=== PATIENT | male | born 1950 | race Caucasian/White ===

== ENCOUNTER 2016-06-13 11:33 | Emergency (ER) | payer OTHER ==
[~2016-06-13 11:33] MED LIST: ASPI81TA44 PO; ATOR10TA60 PO; IBUP800T PO; METF10002 PO
[2016-06-13 12:10] LABS: BASO # 0.1 x10^3/uL (0.0-0.2); BASO % 1 % (0-3); EOS # 0.2 x10^3/uL (0.0-0.7); EOS % 2 % (0-3); HEMATOCRIT 44.3 % (39.0-53.0); LYMPH # 2.2 x10^3/uL (1.0-4.8); LYMPH % 18 % (24-48); MEAN CORPUSCULAR HEMOGLOBIN 30 pg (25-35); MEAN CORPUSCULAR HGB CONC 34 g/dL (31-37); MEAN CORPUSCULAR VOLUME 88 fL (79-100); MONO % 8 % (0-9); NEUT # 8.6 x10^3uL (1.8-7.7); NEUT % 71 % (31-73); PLATELET COUNT 205 x10^3/uL (140-400); RED BLOOD COUNT 5.01 x10^6/uL (4.30-5.70)
[2016-06-13] MEDS ORDERED: FENTANYL PF 100 MCG/2 ML VIAL. IV ONE (12:15)
[2016-06-13] MEDS ORDERED: ONDANSETRON PF 4 MG/2 ML VIAL. IV ONE (12:20)
[2016-06-13 12:22] LABS: CALCIUM 8.8 mg/dL (8.5-10.1); CREATININE 1.4 mg/dL (0.7-1.3); POTASSIUM 3.7 mmol/L (3.5-5.1)
--- NOTE | 2016-06-13 12:22 | RAD ---
CT of the abdomen and pelvis without contrast, 06/13/2016: History: Right flank pain Noncontrast scans were obtained through the urinary tract utilizing the renal stone protocol. This is a limited study for evaluation of the possibility of urinary tract calculi. There is moderate perinephric edema on the right. The right renal pelvis and proximal right ureter are mildly dilated. There is a 9 x 5 mm obstructing calculus in the proximal right ureter at the L2-3 level. The distal right ureter is unremarkable. There is a 10 mm nonobstructing calculus in the lower pole of the left kidney. The left renal collecting system and left ureter are unremarkable. The partially filled urinary bladder shows no abnormality. The prostate gland is mildly enlarged measuring 5.5 cm in width. It contains calcifications. The unopacified liver is unremarkable. No gallbladder abnormality is seen. There is fatty infiltration of the pancreas. The spleen is of normal size. There is mild aortic calcific plaquing without evidence of aneurysm. No abdominal or pelvic adenopathy is seen. Several small sigmoid diverticula are noted. No paracolonic inflammation is evident. The bowel loops are not dilated. The appendix is visualized and shows no abnormality. No free fluid or free air is evident in the abdomen or pelvis. Moderate degenerative changes are present in the lower lumbar spine. There is a chronic appearing mild spondylolisthesis at L5-S1 with partial bony fusion of the disc space. IMPRESSION: 1. 9 x 5 mm obstructing calculus in the proximal right ureter with moderate perinephric edema. 2. Single nonobstructing left intrarenal calculus. 3. Mild prostatic enlargement. PQRS Compliance Statement: One or more of the following individualized dose reduction techniques were utilized for this examination: 1. Automated exposure control 2. Adjustment of the mA and/or kV according to patient size 3. Use of iterative reconstruction technique
--- NOTE | 2016-06-13 12:27 | ED.ADGEN ---
Past History Past Medical History: Diabetes, Hypertension, Other Past Surgical History: Other Alcohol Use: None Drug Use: None Adult General HPI HPI Patient is a 66-year-old male presents emergency department complaining of right flank pain that began suddenly just prior to arrival. He has had no associated nausea or vomiting. He has had no fever or chills. He denies any history of kidney or renal issues in the past. He has had no prehospital intervention. Review of Systems Review of Systems Constitutional: Denies fever or chills [] Eyes: Denies change in visual acuity, redness, or eye pain [] HENT: Denies nasal congestion or sore throat [] Respiratory: Denies cough or shortness of breath [] Cardiovascular: No additional information not addressed in HPI [] GI: Denies abdominal pain, nausea, vomiting, bloody stools or diarrhea [] : Denies dysuria or hematuria [] Musculoskeletal: Denies back pain or joint pain [] Integument: Denies rash or skin lesions [] Neurologic: Denies headache, focal weakness or sensory changes [] Endocrine: Denies polyuria or polydipsia [] Current Medications Current Medications Current Medications Medications (Trade) Dose Ordered Sig/Juwan Start Time Stop Time Status Last Admin Dose Admin Fentanyl Citrate (Fentanyl 2ml Vial) 75 mcg 1X ONCE 06/13/16 12:15 06/13/16 12:16 DC 06/13/16 12:16 75 MCG Hydromorphone HCl (Dilaudid) 1 mg 1X ONCE 06/13/16 13:15 06/13/16 13:16 DC 06/13/16 13:05 1 MG Ketorolac Tromethamine (Toradol) 15 mg 1X ONCE 06/13/16 13:15 06/13/16 13:16 DC Ondansetron HCl (Zofran) 4 mg 1X ONCE 06/13/16 12:20 06/13/16 12:21 DC 06/13/16 12:16 4 MG Allergies Allergies Allergies Coded Allergies Type Severity Reaction Last Updated Verified No Known Drug Allergies 06/13/16 No Physical Exam Physical Exam Constitutional: Well developed, well nourished, no acute distress, non-toxic appearance. [] HENT: Normocephalic, atraumatic, bilateral external ears normal, oropharynx moist, no oral exudates, nose normal. [] Eyes: PERRLA, EOMI, conjunctiva normal, no discharge. [] Neck: Normal range of motion, no tenderness, supple, no stridor. [] Cardiovascular:Heart rate regular rhythm, no murmur [] Lungs & Thorax: Bilateral breath sounds clear to auscultation [] Abdomen: Bowel sounds normal, soft, no tenderness, no masses, no pulsatile masses. [] Skin: Warm, dry, no erythema, no rash. [] Back: No tenderness, right CVA tenderness. [] Extremities: No tenderness, no cyanosis, no clubbing, ROM intact, no edema. [] Neurologic: Alert and oriented X 3, normal motor function, normal sensory function, no focal deficits noted. [] Psychologic: Affect normal, judgement normal, mood normal. [] Current Patient Data Vital Signs Vital Signs Date Time Temp Pulse Resp B/P Pulse Ox O2 Delivery O2 Flow Rate FiO2 06/13/16 14:06 97.3 70 16 163/74 98 Room Air Lab Results Laboratory Tests Test 06/13/16 11:50 White Blood Count 12.0x10^3/uL (4.0-11.0) H Red Blood Count 5.01x10^6/uL (4.30-5.70) Hemoglobin 15.0g/dL (13.0-17.5) Hematocrit 44.3% (39.0-53.0) Mean Corpuscular Volume 88fL (79-100) Mean Corpuscular Hemoglobin 30pg (25-35) Mean Corpuscular Hemoglobin Concent 34g/dL (31-37) Red Cell Distribution Width 13.0% (11.5-14.5) Platelet Count 205x10^3/uL (140-400) Neutrophils (%) (Auto) 71% (31-73) Lymphocytes (%) (Auto) 18% (24-48) L Monocytes (%) (Auto) 8% (0-9) Eosinophils (%) (Auto) 2% (0-3) Basophils (%) (Auto) 1% (0-3) Neutrophils # (Auto) 8.6x10^3uL (1.8-7.7) H Lymphocytes # (Auto) 2.2x10^3/uL (1.0-4.8) Monocytes # (Auto) 1.0x10^3/uL (0.0-1.1) Eosinophils # (Auto) 0.2x10^3/uL (0.0-0.7) Basophils # (Auto) 0.1x10^3/uL (0.0-0.2) Sodium Level 143mmol/L (136-145) Potassium Level 3.7mmol/L (3.5-5.1) Chloride Level 108mmol/L (98-107) H Carbon Dioxide Level 25mmol/L (21-32) Anion Gap 10 (6-14) Blood Urea Nitrogen 19mg/dL (8-26) Creatinine 1.4mg/dL (0.7-1.3) H Estimated GFR (Cockcroft-Gault) 51.0 Glucose Level 140mg/dL (70-99) H Calcium Level 8.8mg/dL (8.5-10.1) Aspartate Amino Transferase (AST) 19U/L (15-37) Alanine Aminotransferase (ALT) 33U/L (16-63) Alkaline Phosphatase 89U/L (46-116) Lipase 115U/L (73-393) EKG EKG [] Radiology/Procedures Radiology/Procedures CT of the abdomen and pelvis without contrast, 06/13/2016: History: Right flank pain Noncontrast scans were obtained through the urinary tract utilizing the renal stone protocol. This is a limited study for evaluation of the possibility of urinary tract calculi. There is moderate perinephric edema on the right. The right renal pelvis and proximal right ureter are mildly dilated. There is a 9 x 5 mm obstructing calculus in the proximal right ureter at the L2-3 level. The distal right ureter is unremarkable. There is a 10 mm nonobstructing calculus in the lower pole of the left kidney. The left renal collecting system and left ureter are unremarkable. The partially filled urinary bladder shows no abnormality. The prostate gland is mildly enlarged measuring 5.5 cm in width. It contains calcifications. The unopacified liver is unremarkable. No gallbladder abnormality is seen. There is fatty infiltration of the pancreas. The spleen is of normal size. There is mild aortic calcific plaquing without evidence of aneurysm. No abdominal or pelvic adenopathy is seen. Several small sigmoid diverticula are noted. No paracolonic inflammation is evident. The bowel loops are not dilated. The appendix is visualized and shows no abnormality. No free fluid or free air is evident in the abdomen or pelvis. Moderate degenerative changes are present in the lower lumbar spine. There is a chronic appearing mild spondylolisthesis at L5-S1 with partial bony fusion of the disc space. IMPRESSION: 1. 9 x 5 mm obstructing calculus in the proximal right ureter with moderate perinephric edema. 2. Single nonobstructing left intrarenal calculus. 3. Mild prostatic enlargement. PQRS Compliance Statement: One or more of the following individualized dose reduction techniques were utilized for this examination: 1. Automated exposure control 2. Adjustment of the mA and/or kV according to patient size 3. Use of iterative reconstruction technique[] Course & Med Decision Making Course & Med Decision Making Pertinent Labs and Imaging studies reviewed. (See chart for details) [] Final Impression Final Impression Kidney stone [] Problems: Dragon Disclaimer Dragon Disclaimer This electronic medical record was generated, in whole or in part, using a voice recognition dictation system. PAUL CARRILLO MD Jun 13, 2016 12:27
[2016-06-13] MEDS ORDERED: HYDROMORPHONE PF 1 MG/ML DISP.SYRIN. IV ONE (13:15)
[2016-06-13] MEDS ORDERED: KETOROLAC 15 MG/ML VIAL. IV ONE (13:15)
[2016-06-13 14:50] VITALS: BP 162/92
== END 2016-06-13 15:05 | disposition short-term general hospital (02) ==
LOC: ER 11:33
DX: N20.0 Calculus of kidney (principal); E11.9 Type 2 diabetes mellitus without complications; I10 Essential (primary) hypertension
CPT/HCPCS: 36415; 74176; 80048; 83690; 84075; 84450; 84460; 85027; 96374; 96375; 99285; J1170; J2405; J3010

== ENCOUNTER 2016-07-16 20:33 | Emergency (ER) | payer OTHER ==
[~2016-07-16] VITALS: Ht 327.7 cm; Wt 121.1 kg
[~2016-07-16 20:33] MED LIST changes: -IBUP800T PO; +IBUP800T19 PO
[2016-07-16] MEDS ORDERED: HYDROmorphone PF 1 MG/ML DISP.SYRIN IV ONE ×2 (21:15→23:00)
[2016-07-16] MEDS ORDERED: ONDANSETRON PF 4 MG/2 ML VIAL. IV ONE ×2 (21:15→23:30)
[2016-07-16] MEDS ORDERED: KETOROLAC 15 MG/ML VIAL. IV ONE (21:15)
[2016-07-16] MEDS ORDERED: IV NORMAL SALINE 1,000ML 1,000 ML IV ONE (21:15)
--- NOTE | 2016-07-16 21:22 | RAD ---
Examination: CT of the abdomen pelvis without contrast. HISTORY History of severe right flank pain COMPARISON 06/13/2016. TECHNIQUE Axial CT images of the abdomen pelvis were performed without contrast. Coronal sagittal reformats were performed. Exposure: One or more of the following dose reduction technique were utilized for this examination: 1. Automated exposure control. 2.Adjustment of MA and /or KV according to patient size. 3. Use of iterative reconstruction technique. Findings; The visualized bibasilar lungs grossly appears unremarkable. No evidence of free air identified in the abdomen. The evaluation of the solid organs is limited lack of IV contrast. The evaluation of the bowel is limited lack of oral contrast. The visualized liver, spleen, adrenals grossly appears unremarkable. The gallbladder is mildly distended. The stomach is mildly distended. The visualized pancreas grossly appears unremarkable. The small bowel is nondilated. Feces and gas noted throughout the colon. Few sigmoid colon diverticulosis identified. Moderate right-sided hydronephrosis again identified. There is a 8.5 millimeter calculus identified in the proximal right ureter similar to prior exam. There is moderate inflammatory fat stranding identified about the right kidney. There is moderate inflammatory fat stranding identified along the right ureter. Urinary bladder is minimally distended. There is minimal stranding identified about the urinary bladder. Intrarenal collecting system calculus identified in the left kidney in the inferior pole measuring 8.5 millimeters again identified. Moderate degenerative changes identified at L4-L5, L5-S1 vertebral level. Spondylolysis identified at L5 vertebral level with mild anterior listhesis of L5 on S1. IMPRESSION - Moderate right-sided hydronephrosis is again identified with a 8.5 millimeter calculus in the proximal right ureter grossly similar to prior exam. There is moderate inflammatory fat stranding identified about the right kidney and along the right ureter could be due to back pressure or due to pyelonephritis. Correlate with lab values. - 8.5 millimeter intrarenal collecting system calculus identified in the left kidney grossly similar to prior exam. - Mild stranding identified about the urinary bladder with minimal distention the urinary bladder, probably nondistention. Correlate for cystitis. Electronically signed by: Isidoro Ghotra (July 16, 2016 21:20:49)
[2016-07-16 21:29] LABS: BASO # 0.1 x10^3/uL (0.0-0.2); BASO % 1 % (0-3); EOS # 0.2 x10^3/uL (0.0-0.7); EOS % 2 % (0-3); HEMATOCRIT 43.2 % (39.0-53.0); HEMOGLOBIN 14.7 g/dL (13.0-17.5); LYMPH # 2.1 x10^3/uL (1.0-4.8); LYMPH % 21 % (24-48); MEAN CORPUSCULAR HEMOGLOBIN 30 pg (25-35); MEAN CORPUSCULAR HGB CONC 34 g/dL (31-37); MEAN CORPUSCULAR VOLUME 88 fL (79-100); MONO % 10 % (0-9); NEUT # 6.6 x10^3uL (1.8-7.7); NEUT % 66 % (31-73); PLATELET COUNT 187 x10^3/uL (140-400); RED CELL DISTRIBUTION WIDTH 13.2 % (11.5-14.5)
[2016-07-16 21:46] LABS: ALBUMIN 3.8 g/dL (3.4-5.0); ALBUMIN/GLOBULIN RATIO 1.3 (1.0-1.7); CALCIUM 8.7 mg/dL (8.5-10.1); CREATININE 1.7 mg/dL (0.7-1.3); GFR 40.8; POTASSIUM 3.9 mmol/L (3.5-5.1); TOTAL BILIRUBIN 0.4 mg/dL (0.2-1.0); TOTAL PROTEIN 6.7 g/dL (6.4-8.2)
[2016-07-16 21:48] LABS: BACTERIA,URINE 0 /HPF (0-FEW); BILIRUBIN,URINE NEG (NEG); CLARITY,URINE CLEAR; COLOR,URINE YELLOW; GLUCOSE,URINE NEG (NEG); NITRITE,URINE NEG (NEG); RBC,URINE 0 /HPF (0-2); SQUAMOUS EPITHELIAL CELL,UR OCC /LPF; UROBILINOGEN,URINE 0.2 mg/dL (0.2 mg/dL); WBC,URINE OCC /HPF (0-4)
[2016-07-16 21:55] VITALS: BP 144/70
--- NOTE | 2016-07-16 22:46 | PHYS DOC ---
Past History Past Medical History: Diabetes, Hypertension, Kidney Stones Past Surgical History: Other Alcohol Use: None Drug Use: None Adult General Chief Complaint Chief Complaint: FLANK PAIN HPI HPI Patient is a 66-year-old gentleman who presents here today complaining of right flank pain. Patient reports she was diagnosed with a kidney stone in his proximal ureter that was approximately 8-9 mm in size. Patient reports that he was evaluated by Dr. Del Angel and had lithotripsy done as well as a stent without any successful resolution to his stone. Patient reports that Dr. Del Angel informed him that the stented pushed the stone back into the kidney and he told that it may or may not come flying out. He advised that if he starts having pain that is returning that he should return to the ER to assist with the pain and discomfort. Patient reports earlier today he started feeling the same type of pain that he had. He reports the pain is in his right flank radiating to his right abdominal area. Patient has any fevers shakes chills nausea vomiting or diarrhea at this time. Patient presents today requesting 'that we go in there and remove it permanently. " Patient's physical exam is remarkable for tenderness to palpation to his right flank and right abdominal area. Patient does not appear to be in any severe distress at this time other than the discomfort that he is having. Patient's abdomen is soft nondistended no rebound or guarding. Normal active bowel sounds. Patient does not present with any signs or symptoms of be concerning for an acute surgical abdomen. Patient's ER workup was significant for a CT scan that revealed moderate right- sided hydronephrosis with an 8.5 mm Was in the right proximal ureter is grossly similar to the prior exam. There is moderate inflammatory fat stranding identified around the right kidney and along the right ureter which could be due to back pressure or due to pyelonephritis. Patient received 2 rounds of Dilaudid IV in the ER without any significant resolution in his discomfort. Patient's pain keeps recurring. Patient was given IV fluids in the ER. I discussed with the patient the CT reports and his options. Patient is currently requesting that we assist him with admission to the hospital in order to have the stone removed once and for all. Plan #1 intractable abdominal pain secondary to renal colic. Patient received several rounds of pain medicines here without any significant resolution in his discomfort. Patient is to be transferred to [facility] for admission for further management of the of his discomfort and for consultation with Dr. Del Angel to assist with definitive care of the stone. Patient is otherwise clinically and hemodynamically stable. There is no evidence of pilohydronephrosis. Case was discussed with Dr. rivera she is in agreement with the plan to transfer to [facility] for admission. Review of Systems Review of Systems Constitutional: Denies fever or chills [] Eyes: Denies change in visual acuity, redness, or eye pain [] HENT: Denies nasal congestion or sore throat [] Respiratory: Denies cough or shortness of breath [] Cardiovascular: No additional information not addressed in HPI [] GI: Denies abdominal pain, nausea, vomiting, bloody stools or diarrhea [] : Denies dysuria or hematuria [] Musculoskeletal: Denies back pain or joint pain [] Integument: Denies rash or skin lesions [] Neurologic: Denies headache, focal weakness or sensory changes [] Endocrine: Denies polyuria or polydipsia [] Current Medications Current Medications Current Medications Medications (Trade) Dose Ordered Sig/Juwan Start Time Stop Time Status Last Admin Dose Admin Hydromorphone HCl (Dilaudid) 1 mg 1X ONCE 07/16/16 23:00 07/16/16 23:01 07/16/16 22:37 1 MG Ketorolac Tromethamine (Toradol) 15 mg 1X ONCE 07/16/16 21:15 07/16/16 21:16 DC 07/16/16 21:24 15 MG Ondansetron HCl (Zofran) 4 mg 1X ONCE 07/16/16 21:15 07/16/16 21:16 DC 07/16/16 21:20 4 MG Sodium Chloride 1,000 ml @ 1,000 mls/hr 1X ONCE 07/16/16 21:15 07/16/16 22:14 DC 07/16/16 21:16 1,000 MLS/HR Allergies Allergies Allergies Coded Allergies Type Severity Reaction Last Updated Verified No Known Drug Allergies 06/13/16 No Physical Exam Physical Exam Constitutional: Well developed, well nourished, no acute distress, non-toxic appearance. [] HENT: Normocephalic, atraumatic, bilateral external ears normal, oropharynx moist, no oral exudates, nose normal. [] Eyes: PERRLA, EOMI, conjunctiva normal, no discharge. [] Neck: Normal range of motion, no tenderness, supple, no stridor. [] Cardiovascular:Heart rate regular rhythm, no murmur [] Lungs & Thorax: Bilateral breath sounds clear to auscultation [] Abdomen: Bowel sounds normal, soft, no tenderness, no masses, no pulsatile masses. [] Skin: Warm, dry, no erythema, no rash. [] Back: No tenderness, no CVA tenderness. [] Extremities: No tenderness, no cyanosis, no clubbing, ROM intact, no edema. [] Neurologic: Alert and oriented X 3, normal motor function, normal sensory function, no focal deficits noted. [] Psychologic: Affect normal, judgement normal, mood normal. [] Current Patient Data Vital Signs Vital Signs Date Time Temp Pulse Resp B/P (MAP) Pulse Ox O2 Delivery O2 Flow Rate FiO2 07/16/16 21:55 68 18 144/70 (94) 95 Room Air 07/16/16 20:40 99.1 Lab Results Laboratory Tests Test 07/16/16 21:10 White Blood Count 10.0 x10^3/uL (4.0-11.0) Red Blood Count 4.90 x10^6/uL (4.30-5.70) Hemoglobin 14.7 g/dL (13.0-17.5) Hematocrit 43.2 % (39.0-53.0) Mean Corpuscular Volume 88 fL (79-100) Mean Corpuscular Hemoglobin 30 pg (25-35) Mean Corpuscular Hemoglobin Concent 34 g/dL (31-37) Red Cell Distribution Width 13.2 % (11.5-14.5) Platelet Count 187 x10^3/uL (140-400) Neutrophils (%) (Auto) 66 % (31-73) Lymphocytes (%) (Auto) 21 % (24-48) L Monocytes (%) (Auto) 10 % (0-9) H Eosinophils (%) (Auto) 2 % (0-3) Basophils (%) (Auto) 1 % (0-3) Neutrophils # (Auto) 6.6 x10^3uL (1.8-7.7) Lymphocytes # (Auto) 2.1 x10^3/uL (1.0-4.8) Monocytes # (Auto) 1.0 x10^3/uL (0.0-1.1) Eosinophils # (Auto) 0.2 x10^3/uL (0.0-0.7) Basophils # (Auto) 0.1 x10^3/uL (0.0-0.2) Urine Collection Type Unknown Urine Color Yellow Urine Clarity Clear Urine pH 6.0 Urine Specific Supai 1.015 Urine Protein Neg (NEG-TRACE) Urine Glucose (UA) Neg mg/dL (NEG) Urine Ketones (Stick) Neg mg/dL (NEG) Urine Blood Neg (NEG) Urine Nitrite Neg (NEG) Urine Bilirubin Neg (NEG) Urine Urobilinogen Dipstick 0.2 mg/dL (0.2 mg/dL) Urine Leukocyte Esterase Neg (NEG) Urine RBC 0 /HPF (0-2) Urine WBC Occ /HPF (0-4) Urine Squamous Epithelial Cells Occ /LPF Urine Bacteria 0 /HPF (0-FEW) Sodium Level 141 mmol/L (136-145) Potassium Level 3.9 mmol/L (3.5-5.1) Chloride Level 106 mmol/L (98-107) Carbon Dioxide Level 24 mmol/L (21-32) Anion Gap 11 (6-14) Blood Urea Nitrogen 24 mg/dL (8-26) Creatinine 1.7 mg/dL (0.7-1.3) H Estimated GFR (Cockcroft-Gault) 40.8 BUN/Creatinine Ratio 14 (6-20) Glucose Level 150 mg/dL (70-99) H Calcium Level 8.7 mg/dL (8.5-10.1) Total Bilirubin 0.4 mg/dL (0.2-1.0) Aspartate Amino Transferase (AST) 17 U/L (15-37) Alanine Aminotransferase (ALT) 30 U/L (16-63) Alkaline Phosphatase 84 U/L (46-116) Total Protein 6.7 g/dL (6.4-8.2) Albumin 3.8 g/dL (3.4-5.0) Albumin/Globulin Ratio 1.3 (1.0-1.7) EKG EKG [] Radiology/Procedures Radiology/Procedures [] Course & Med Decision Making Course & Med Decision Making Pertinent Labs and Imaging studies reviewed. (See chart for details) [] Dragon Disclaimer Dragon Disclaimer This chart was dictated in whole or in part using Voice Recognition software in a busy, high-work load, and often noisy Emergency Department environment. It may contain unintended and wholly unrecognized errors or omissions. Departure Departure: Impression: Primary Impression: Kidney stone Additional Impressions: Intractable abdominal pain Renal colic on right side Elevated serum creatinine Acute renal injury Disposition: 05 XFER OTHER (to [facility] for admission as inpatient) Condition: IMPROVED Referrals: ANNABELLE CARRASCO MD (PCP) Problem Qualifiers FABY TANG MD July 16, 2016 22:46
== END 2016-07-16 23:13 | disposition short-term general hospital (02) ==
LOC: ER 20:33
DX: N20.0 Calculus of kidney (principal); N23 Unspecified renal colic; N17.9 Acute kidney failure, unspecified; R79.89 Other specified abnormal findings of blood chemistry; E11.9 Type 2 diabetes mellitus without complications; I10 Essential (primary) hypertension
CPT/HCPCS: 36415; 74176; 80053; 81001; 85027; 96361; 96374; 96375; 96376; 99285; J1170; J1885; J2405; J7030

== ENCOUNTER → 2016-09-09 | Outpatient (CLI) | payer OTHER ==
--- NOTE | 2016-09-09 14:33 | RAD ---
Indication kidney stones. Occasional discomfort on the right. Grayscale imaging was performed. Note is made of a renal ultrasound examinations August 2008. Note is made of a CT examination of the abdomen and pelvis 07/16/2016 demonstrating a calculus at the right UPJ. The right kidney measures 10.8 x 6 x 5 cm. No hydronephrosis or mass is seen. No definite renal calculi are seen. The left kidney measures 11.5 x 5.5 x 5.8 cm. There is a left renal calculus measuring approximately 8 mm in greatest dimension. There is mild prominence of the left collecting system. No marked hydronephrosis is seen. The urinary bladder appears grossly normal. IMPRESSION: Minimal prominence of the left collecting system. Left renal calculus. No right-sided hydronephrosis
== END | disposition home or self-care (01) ==
LOC: US 13:04
PROVIDERS: ATTEND Urology
DX: N20.0 Calculus of kidney (principal); Z87.442 Personal history of urinary calculi
CPT/HCPCS: 76770

== ENCOUNTER → 2018-03-15 | Outpatient (CLI) | payer OTHER ==
[~2018-03-15] MED LIST changes: -ASPI81TA44 PO; +ASPI81TA59 PO; -METF10002 PO; +METF10007 PO
--- NOTE | 2018-03-16 07:56 | RAD ---
Right knee, 2 views, 03/15/2018: HISTORY: Knee pain There is mild narrowing of the medial compartment of the knee joint with mild marginal spurring. There is mild spurring at the patellofemoral articulation. No fracture or dislocation is identified. Fullness of the soft tissues in the suprapatellar bursa region raises the possibility of a small joint effusion. IMPRESSION: 1. Mild degenerative change. 2. No acute bony abnormality is detected. Electronically signed by: Ricardo Briggs MD (03/16/2018 7:51 AM) [facility]
== END | disposition home or self-care (01) ==
LOC: RAD 16:58
DX: M17.11 Unilateral primary osteoarthritis, right knee (principal); M76.891 Other specified enthesopathies of right lower limb, excluding foot
CPT/HCPCS: 73560

== ENCOUNTER → 2018-04-16 | Outpatient (CLI) | payer OTHER ==
--- NOTE | 2018-04-17 08:28 | RAD ---
EXAM: Bilateral knees, standing view; right knee, 2 views. HISTORY: Pain. COMPARISON: None. FINDINGS: A frontal standing view both knees and lateral and sunrise views of the right knee are obtained. There is medial compartment joint space narrowing, subchondral sclerosis and spurring involving the right knee. There is also minimal right patellar spurring. There is suspected slight left genu valgus. There is no right knee effusion. IMPRESSION: 1. Mild medial and minimal patellofemoral compartment osteoarthritis of the right knee. 2. Suspected slight left genu valgus. Electronically signed by: Keyonna Chavarria MD (04/17/2018 8:25 AM) [facility] [id number]
== END | disposition home or self-care (01) ==
LOC: RAD 16:46
PROVIDERS: ATTEND Orthopaedic Surgery
DX: M17.11 Unilateral primary osteoarthritis, right knee (principal)
CPT/HCPCS: 73560; 73565

== ENCOUNTER 2019-10-27 09:16 | Emergency (ER) | payer OTHER ==
[~2019-10-27] VITALS: Ht 175.3 cm; Wt 118.2 kg
[2019-10-27] MEDS ORDERED: ONDANSETRON PF 4 MG/2 ML VIAL. ONE (09:32)
[2019-10-27 09:39] VITALS: BP 130/79
[2019-10-27] MEDS ORDERED: ONDANSETRON PF 4 MG/2 ML VIAL. IVP ONE (09:45)
--- NOTE | 2019-10-27 09:49 | PHYS DOC ---
Past History Past Medical History: Diabetes, Hypertension, Kidney Stones Past Surgical History: No Surgical History Alcohol Use: None Drug Use: None General Adult EDM: Chief Complaint: HYPERGLYCEMIA HPI: HPI: 69-year-old male presents with urinary retention. The patient is on Flomax. He has been having difficulty off and on lately with urine stream. Yesterday, he felt like he had to go several times, but the stream was decreasing. He has not urinated since last night. He got up 3 times overnight but was unable to urinate. He was unable to urinate this morning. He is also been having chills but not a fever. He has never had them before. Patient has had a history of kidney stones and urinary tract infections in the past. He is scheduled to see urology about his prostate, but that is now scheduled for a few months. The patient is diabetic on metformin and his blood sugar is elevated at 239. Review of Systems: Review of Systems: Constitutional: chills Eyes: Denies change in visual acuity HENT: Denies nasal congestion or sore throat Respiratory: Denies cough or shortness of breath Cardiovascular: Denies chest pain or edema GI: Mild suprapubic abdominal pain, nausea, vomiting. Denies bloody stools or diarrhea : Urinary retention Musculoskeletal: Denies back pain or joint pain Integument: Denies rash Neurologic: Denies headache, focal weakness or sensory changes Endocrine: Denies polyuria or polydipsia Lymphatic: Denies swollen glands Psychiatric: Denies depression or anxiety Heart Score: Risk Factors: Risk Factors: DM, Current or recent (<one month) smoker, HTN, HLP, family history of CAD, obesity. Risk Scores: Score 0 - 3: 2.5% MACE over next 6 weeks - Discharge Home Score 4 - 6: 20.3% MACE over next 6 weeks - Admit for Clinical Observation Score 7 - 10: 72.7% MACE over next 6 weeks - Early Invasive Strategies Current Medications: Current Meds: Current Medications Medications (Trade) Dose Ordered Sig/Juwan Start Time Stop Time Status Last Admin Dose Admin Ondansetron HCl (Zofran) 4 mg 1X ONCE 10/27/19 09:45 10/27/19 09:46 Allergies: Allergies: Allergies Coded Allergies Type Severity Reaction Last Updated Verified No Known Drug Allergies 06/13/16 No Physical Exam: PE: Constitutional: Well developed, obese, well nourished, no acute distress, non- toxic appearance. [] HENT: Normocephalic, atraumatic, bilateral external ears normal, oropharynx dry, no oral exudates, nose normal. [] Eyes: PERRLA, EOMI, conjunctiva normal, no discharge. [] Neck: Normal range of motion, no tenderness, supple, no stridor. [] Cardiovascular: Heart rate regular rhythm, no murmur [] Lungs & Thorax: Bilateral breath sounds clear to auscultation [] Abdomen: Bowel sounds normal, soft, mild suprapubic tenderness, no masses, no pulsatile masses. [] Skin: Warm, dry, no erythema, no rash. [] Back: No tenderness, no CVA tenderness. [] Extremities: No tenderness, no cyanosis, no clubbing, ROM intact, no edema. [] Neurologic: Alert and oriented X 3, normal motor function, normal sensory function, no focal deficits noted. [] Psychologic: Affect normal, judgement normal, mood normal. [] Current Patient Data: Labs: Laboratory Tests Test 10/27/19 09:24 Glucose (Fingerstick) 239 mg/dL (70-99) H Vital Signs: Vital Signs Date Time Temp Pulse Resp B/P (MAP) Pulse Ox O2 Delivery O2 Flow Rate FiO2 10/27/19 09:39 98.8 79 24 130/79 (96) 98 EKG: EKG: [] Radiology/Procedures: Radiology/Procedures: [] Course & Med Decision Making: Course & Med Decision Making Pertinent Labs and Imaging studies reviewed. (See chart for details) The patient's labs are remarkable for an elevated white count. He also has elevated blood sugar but a normal anion gap. The patient was given a liter normal saline and a Diaz catheter was placed.. He is feeling a bit better at this time. His urinalysis reveals urinary tract infection. I will treat with 1 g of Rocephin IV followed by 7 days of Keflex. We will remove the Diaz catheter. He is stable for discharge at this time. [] Dragon Disclaimer: Dragon Disclaimer: This electronic medical record was generated, in whole or in part, using a voice recognition dictation system. Departure Departure: Impression: Primary Impression: UTI (urinary tract infection) Qualified Codes: N30.01 - Acute cystitis with hematuria Additional Impression: Hyperglycemia due to diabetes mellitus Disposition: HOME/RESIDENCE PRIOR TO ADM Condition: STABLE Referrals: ANNABELLE CARRASCO MD (PCP) Patient Instructions: Urinary Tract Infection, [id number] Scripts Cephalexin (KEFLEX) 500 Mg Capsule 1 CAP PO TID for UTI for 7 Days, #21 CAP 0 Refills Prov: PAPO PANDEY DO 10/27/19 Justification of Admission: Justification of Admission: Justification of Admission Dx: N/A PAPO PANDEY DO Oct 27, 2019 09:49
[2019-10-27 09:54] LABS: BASO # 0.1 x10^3/uL (0.0-0.2); BASO % 1 % (0-3); EOS # 0.1 x10^3/uL (0.0-0.7); EOS % 1 % (0-3); HEMOGLOBIN 14.8 g/dL (13.0-17.5); LYMPH # 2.4 x10^3/uL (1.0-4.8); LYMPH % 15 % (24-48); MEAN CORPUSCULAR HEMOGLOBIN 31 pg (25-35); MEAN CORPUSCULAR HGB CONC 34 g/dL (31-37); MEAN CORPUSCULAR VOLUME 91 fL (79-100); MONO # 1.3 x10^3/uL (0.0-1.1); MONO % 8 % (0-9); NEUT # 12.4 x10^3uL (1.8-7.7); NEUT % 76 % (31-73); PLATELET COUNT 250 x10^3/uL (140-400); RED BLOOD COUNT 4.83 x10^6/uL (4.30-5.70); RED CELL DISTRIBUTION WIDTH 13.2 % (11.5-14.5); WHITE BLOOD COUNT 16.3 x10^3/uL (4.0-11.0)
[2019-10-27 09:57] LABS: CALCIUM 9.6 mg/dL (8.5-10.1); CREATININE 1.1 mg/dL (0.7-1.3); GFR 66.8; POTASSIUM 3.6 mmol/L (3.5-5.1)
[2019-10-27 10:02] LABS: ALBUMIN 3.8 g/dL (3.4-5.0); ALBUMIN/GLOBULIN RATIO 1.3 (1.0-1.7); TOTAL BILIRUBIN 1.1 mg/dL (0.2-1.0); TOTAL PROTEIN 6.8 g/dL (6.4-8.2)
[2019-10-27 10:18] LABS: BILIRUBIN,URINE NEG (NEG); CLARITY,URINE HAZY; COLOR,URINE YELLOW; GLUCOSE,URINE 250 mg/dL (NEG)
[2019-10-27 10:19] LABS: BACTERIA,URINE MANY /HPF (0-FEW); HYALINE CASTS, URINE OCC /HPF; NITRITE,URINE POS (NEG); SQUAMOUS EPITHELIAL CELL,UR FEW /LPF; UROBILINOGEN,URINE 0.2 mg/dL (0.2 mg/dL)
[2019-10-27] MEDS ORDERED: cefTRIAXone SODIUM 1 GM VIAL ONE (11:33)
[2019-10-27] MEDS ORDERED: IV NORMAL SALINE 50ML 50 ML ONE (11:33)
[2019-10-27] MEDS ORDERED: CEPH-264 PO (11:40)
[2019-10-27 11:45] LABS: % BANDS 10 % (0-9); % BASOS 1 % (0-3); % LYMPHS 15 % (24-48); % MONOS 7 % (0-10); % SEGS 67 % (35-66)
[2019-10-27 11:46] LABS: PLT ESTIMATE ADEQUATE (ADEQUATE)
--- NOTE | 2019-10-27 18:14 | EKG ---
[address] [address] Test Date: 2019-10-27 Test Time: 09:47:12 Pat Name: DESIREE ZARAGOZA Department: Room: Gender: M Medication Coordinator: : [id number] Requested By: PAPO PANDEY Order Number: [id number] Reading MD: Measurements Intervals [place] Rate: 65 P: -29 [place]: 130 QRS: -11 QRSD: 96 T: 1 QT: 420 QTc: 438 Interpretive Statements SINUS RHYTHM LEFTWARD AXIS T ABNORMALITY IN HIGH LATERAL LEADS ABNORMAL ECG RI6.02 No previous ECG available for comparison
== END 2019-10-27 12:14 | disposition home or self-care (01) ==
LOC: ER 09:16
DX: N30.01 Acute cystitis with hematuria (principal); E11.65 Type 2 diabetes mellitus with hyperglycemia; I10 Essential (primary) hypertension; Z87.440 Personal history of urinary (tract) infections; Z87.442 Personal history of urinary calculi
CPT/HCPCS: 36415; 51702; 80053; 81001; 82947; 84484; 85007; 85025; 87086; 93005; 96374; 99284; J2405; 99283-25